=== PATIENT | female | born 1990 | race Caucasian/White ===

== ENCOUNTER 2016-05-28 20:33 | Emergency (ER) | payer SELFPAY ==
[~2016-05-28] VITALS: Ht 170.2 cm; Wt 63.6 kg
[~2016-05-28 20:33] MED LIST: IBUP600 PO
[2016-05-28 20:36] VITALS: BP 169/103; PULSE 95; RESP 15; TEMP 98; O2SAT 97
[2016-05-28 21:58] VITALS: BP 128/87; PULSE 69; RESP 18; O2SAT 97
--- NOTE | 2016-05-29 14:52 | EKG ---
Date Performed: 05/28/2016 Time Performed: 22:06:25 PTAGE: 25 years EKG: SINUS BRADYCARDIA BORDERLINE ECG NO PREVIOUS TRACING DOCTOR: Ramiro Kaba Interpretating Date/Time 05/29/2016 14:50:52
== END 2016-05-29 02:00 | disposition left against medical advice (07) ==
LOC: NED 20:33
DX: R07.9 Chest pain, unspecified (principal); R94.31 Abnormal electrocardiogram [ECG] [EKG]; Z53.21 Procedure and treatment not carried out due to patient leaving prior to being seen by health care provider
CPT/HCPCS: 93005; 99281

== ENCOUNTER 2017-01-08 19:08 | Emergency (ER) | payer SELFPAY ==
[~2017-01-08] VITALS: Ht 172.7 cm; Wt 65.0 kg
[2017-01-08 19:10] VITALS: BP 138/90; PULSE 84; RESP 16; TEMP 98.6; O2SAT 99
[2017-01-08] MEDS ORDERED: SODIUM CHLOR 0.9% 1000 ML INJ 1,000 ML IV SCH (20:16)
--- NOTE | 2017-01-08 20:21 | PD ---
HPI Chief Complaint: Pain: Acute or Chronic Time Seen by Provider: 20:10 Travel History International Travel<30 days: No Contact w/Intl Traveler<30days: No Traveled to known affect area: No History of Present Illness HPI This Is 18-year-old female with no significant past medical history presents for evaluation. For the past several months the patient has been having complaints of sore throat, pressure in the chest, palpitations, left arm pain, generalized malaise and decreased appetite. She denies rash, recent travel, recent change in diet, recent change in activity level, recent weight loss or gain, fevers, nights sweats, sick contacts. She denies abdominal pain, vomiting , diarrhea, dysuria, flank pain. She reports that she has been seen at outside emergency rooms and urgent care centers and has been on 3 different rounds of azithromycin over the past 6 months but her symptoms have persisted. She saw her primary care physician Dr. Gutierrez 2 days ago to ordered some outpatient blood work but this has not yet resulted. The symptoms were worse today and this is what prompted the evaluation. She has no other complaints at this time. [facility] Social History Tobacco Use: No Allergies-Medications (Allergen,Severity, Reaction): Coded Allergies: No Known Allergies (Unverified , 01/08/17) Reported Meds & Prescriptions Reported Meds & Active Scripts Active Reported Singulair (Montelukast Sodium) 5 Mg Chew 5 Mg CHEW HS Review of Systems Except as stated in HPI: all other systems reviewed are Neg Physical Exam Narrative GENERAL: Well-developed well-nourished female in no acute distress SKIN: Warm and dry. HEAD: Atraumatic. Normocephalic. EYES: Pupils equal and round. No scleral icterus. No injection or drainage. ENT: No nasal bleeding or discharge. Mucous membranes pink and moist. There is no oropharyngeal erythema or exudate. Tympanic membranes appear normal. NECK: Trachea midline. No JVD. No lymphadenopathy. Neck supple with full range of motion. CARDIOVASCULAR: Regular rate and rhythm. No murmur appreciated. RESPIRATORY: No accessory muscle use. Clear to auscultation. Breath sounds equal bilaterally. GASTROINTESTINAL: Abdomen soft, non-tender, nondistended. Hepatic and splenic margins not palpable. MUSCULOSKELETAL: No obvious deformities. There is no edema in the upper or lower extremities. There is no obvious deformity in the upper or lower extremity is. The patient maintains full range of motion of the upper and lower extremities. Distal pulses are intact. NEUROLOGICAL: Awake and alert. No obvious cranial nerve deficits. Motor grossly within normal limits. Normal speech. PSYCHIATRIC: Appropriate mood and affect; insight and judgment normal. Data Data Last Documented VS Vital Signs Date Time Temp Pulse Resp B/P Pulse Ox O2 Delivery O2 Flow Rate FiO2 01/08/17 19:10 98.6 84 16 138/90 99 Room Air Orders Electrocardiogram (01/08/17 20:16) Ed Urine Pregnancytest Poc (01/08/17 20:16) Complete Blood Count With Diff (01/08/17 20:16) Comprehensive Metabolic Panel (01/08/17 20:16) Magnesium (Mg) (01/08/17 20:16) Urinalysis - C+S If Indicated (01/08/17 20:16) Chest, Single Ap (01/08/17 20:16) Thyroid Stimulating Hormone (01/08/17 20:16) Monoscreen (01/08/17 20:16) Influenzae A/B Antigen (01/08/17 20:16) Creatine Kinase (Cpk) (01/08/17 20:16) Ondansetron Inj (Zofran Inj) (01/08/17 20:30) Sodium Chlor 0.9% 1000 Ml Inj (Ns 1000 M (01/08/17 20:16) Group A Rapid Strep Screen (01/08/17 21:04) Labs Laboratory Tests Test 01/08/17 01/08/17 20:54 21:00 Urine Color COLORLESS Urine Turbidity CLEAR Urine pH 6.0 Urine Specific [place] 1.002 Urine Protein NEG mg/dL Urine Glucose (UA) NEG mg/dL Urine Ketones NEG mg/dL Urine Occult Blood NEG Urine Nitrite NEG Urine Bilirubin NEG Urine Urobilinogen LESS THAN 2.0 MG/DL Urine Leukocyte Esterase NEG Microscopic Urinalysis Comment CULT NOT INDICATED White Blood Count 8.5 TH/MM3 Red Blood Count 4.27 MIL/MM3 Hemoglobin 13.5 GM/DL Hematocrit 40.9 % Mean Corpuscular Volume 95.7 FL Mean Corpuscular Hemoglobin 31.7 PG Mean Corpuscular Hemoglobin 33.1 % Concent Red Cell Distribution Width 13.1 % Platelet Count 223 TH/MM3 Mean Platelet Volume 8.4 FL Neutrophils (%) (Auto) 58.5 % Lymphocytes (%) (Auto) 34.1 % Monocytes (%) (Auto) 6.2 % Eosinophils (%) (Auto) 0.9 % Basophils (%) (Auto) 0.3 % Neutrophils # (Auto) 5.0 TH/MM3 Lymphocytes # (Auto) 2.9 TH/MM3 Monocytes # (Auto) 0.5 TH/MM3 Eosinophils # (Auto) 0.1 TH/MM3 Basophils # (Auto) 0.0 TH/MM3 CBC Comment DIFF FINAL Differential Comment Sodium Level 139 MEQ/L Potassium Level 3.7 MEQ/L Chloride Level 106 MEQ/L Carbon Dioxide Level 26.6 MEQ/L Anion Gap 6 MEQ/L Blood Urea Nitrogen 11 MG/DL Creatinine 0.74 MG/DL Estimat Glomerular Filtration 93 ML/MIN Rate Random Glucose 72 MG/DL Calcium Level 8.9 MG/DL Magnesium Level 2.4 MG/DL Total Bilirubin 0.4 MG/DL Aspartate Amino Transf 14 U/L (AST/SGOT) Alanine Aminotransferase 23 U/L (ALT/SGPT) Alkaline Phosphatase 49 U/L Total Creatine Kinase 159 U/L Total Protein 7.4 GM/DL Albumin 4.4 GM/DL Thyroid Stimulating Hormone 1.570 uIU/ML 3rd Gen Monoscreen NEG MDM Medical Decision Making Medical Screen Exam Complete: Yes Emergency Medical Condition: Yes Medical Record Reviewed: Yes Differential Diagnosis Viral syndrome, infectious mononucleosis, malignancy, dehydration, electrolyte abnormality, symptomatic anemia, esophagitis, GERD, palpitations, hypothyroidism Narrative Course 26-year-old female who for several months has been experiencing intermittent sore throat, chest pressure, palpitations, left arm pain, lower extremity weakness, decreased appetite. Physical examination is unremarkable. The patient's lab work and imaging studies have all been reviewed and found to be unremarkable. At this point in time the plan will be to have the patient follow up with her primary care physician for more of an outpatient workup. Stable for discharge. Diagnosis Primary Impression: Sore throat Additional Impressions: Fatigue Qualified Code: R53.83 - Fatigue, unspecified type Left arm pain Departure Forms: Tests/Procedures, Work Release Enter return to work date: Jan 10, 2017 Additional Instructions: As discussed, the tests performed in the emergency room today were normal. Follow-up with your primary care physician. Return for any emergent medical conditions. Med/Other Pt SpecificInfo: No Change to Meds Disposition: 01 DISCHARGE HOME Condition: Stable Jared Breaux Jan 08, 2017 20:21
[2017-01-08] MEDS ORDERED: ONDANSETRON HCL 4 MG/2 ML VIAL IVP ONE (20:30)
[2017-01-08] MEDS ORDERED: MONT5CHW2 CHEW (20:36)
--- NOTE | 2017-01-08 20:52 | RADRPT ---
EXAM DATE/TIME: 01/08/2017 20:40 [facility] COMPARISON: No previous studies available for comparison. INDICATIONS : Shortness of breath. Respiratory issues on and off for the past year. MEDICAL HISTORY : None. SURGICAL HISTORY : None. ENCOUNTER: Initial ACUITY: 1 year PAIN SCORE: 0/10 LOCATION: Bilateral chest FINDINGS: The lungs are clear without infiltrate, nodule, or mass. There is no appreciable pleural effusion fo r technique. Heart and mediastinum are unremarkable. CONCLUSION: No acute cardiopulmonary disease. Yolande Russo MD on January 08, 2017 at 20:51 Board Certified Radiologist. This report was verified electronically.
[2017-01-08 21:28] LABS: BLOOD, URINE NEG (NEG); GLUCOSE,URINE NEG (NEG); KETONE, URINE NEG (NEG); NITRITE,URINE NEG (NEG); URINE COLOR COLORLESS (YELLW/STRAW)
[2017-01-08 21:30] LABS: COMMENT (UR) CULT NOT INDICATED; CULTURE IF INDICATED CULT NOT INDICATED
[2017-01-08 21:34] LABS: BASOPHIL % 0.3 % (0.0-2.0); EOSINOPHIL # 0.1 TH/MM3 (0-0.4); EOSINOPHIL % 0.9 % (0.0-4.0); HEMATOCRIT 40.9 % (35.0-46.0); HEMO FLAGS DIFF FINAL; LYMPH % 34.1 % (9.0-44.0); LYMPHOCYTE # 2.9 TH/MM3 (1.0-4.8); MEAN CELL VOLUME 95.7 FL (80.0-100.0); MEAN CORPUSCULAR HEMOGLOBIN 31.7 PG (27.0-34.0); MEAN CORPUSCULAR HGB CONC 33.1 % (32.0-36.0); MONO % 6.2 % (0.0-8.0); NEUT % 58.5 % (16.0-70.0); PLATELET COUNT 223 TH/MM3 (150-450); RED BLOOD COUNT 4.27 MIL/MM3 (4.00-5.30); RED CELL DISTRIBUTION WIDTH 13.1 % (11.6-17.2); WHITE BLOOD COUNT 8.5 TH/MM3 (4.0-11.0)
[2017-01-08 21:50] LABS: ANION GAP 6 MEQ/L (5-15); AST (GOT) 14 U/L (15-37); BICARBONATE 26.6 MEQ/L (21.0-32.0); BLOOD UREA NITROGEN 11 MG/DL (7-18); CHLORIDE 106 MEQ/L (98-107); GLOMERULAR FILTRATION RATE 93 ML/MIN (>89); MAGNESIUM 2.4 MG/DL (1.5-2.5); POTASSIUM 3.7 MEQ/L (3.5-5.1); SODIUM (NA) 139 MEQ/L (136-145)
[2017-01-08 22:00] LABS: ALKALINE PHOSPHATASE 49 U/L (45-117); ALT (GPT) 23 U/L (10-53); CREATINE KINASE 159 U/L (26-192); TOTAL BILIRUBIN ADULT 0.4 MG/DL (0.2-1.0)
--- NOTE | 2017-01-09 15:12 | EKG ---
Date Performed: 01/08/2017 Time Performed: 20:39:11 PTAGE: 26 years EKG: Sinus rhythm Compared to prior tracing no significant change NORMAL ECG PREVIOUS TRACING : 05/28/2016 22.06 DOCTOR: Nnamdi Harding Interpretating Date/Time 01/09/2017 15:10:23
== END 2017-01-08 22:45 | disposition home or self-care (01) ==
LOC: NEPD 19:08
DX: R07.0 Pain in throat (principal); R53.83 Other fatigue; M79.602 Pain in left arm; R07.89 Other chest pain; R00.2 Palpitations; R53.81 Other malaise; R63.0 Anorexia
CPT/HCPCS: 71010; 80053; 81001; 82550; 83735; 84443; 84703; 85025; 86308; 87081; 87804; 87880; 93005; 96361; 96374; 99285; J2405; J7030